=== PATIENT | female | born 1940 | race Caucasian/White ===

== ENCOUNTER → 2016-08-27 | Outpatient (CLI) | payer OTHER ==
--- NOTE | 2016-08-27 16:23 | MA ---
Screening Digital Mammogram with Digital Breast Tomosynthesis Clinical Indications: Routine screening. Technique: Standard cephalocaudal projections are obtained. XCCL view of the right breast was also o btained. Digital breast tomosynthesis was performed in the MLO projection with reconstruction at 1.0 mm slice thickness and composite MLO views reconstructed. This examination is processed by the [employer] aided detection system. Comparison: July 14, 2015; May 02, 2014; and studies dating back to April 07, 2009. Breast density: D; The breasts are extremely dense, which lowers the sensitivity of mammography. Findings: CAD was reviewed. There are no new masses, new clusters of microcalcifications, or significant axillary lymphadenopathy . Impression: Negative mammogram. BI-RADS 1. Recommendation: Routine screening mammogram is recommended in one year. Dense mammographic pattern limits the sensitivity of mammography in this patient. If there is a clini hermilo palpable abnormality, recommend additional imaging with ultrasound if clinically indicated. [facility] will send a result letter to the patient. Negative mammography should not preclude additional workup of a clinically suspicious finding. The patient's information is entered into a reminder system with a target due date for her next mammo gram.
== END ==
LOC: FIMAGING 10:45
DX: Z12.31 Encounter for screening mammogram for malignant neoplasm of breast (principal)
CPT/HCPCS: G0202

== ENCOUNTER → 2016-09-21 | Outpatient (CLI) | payer OTHER ==
[~2016-09-21] MED LIST: GADOBUTROL 10 ML VIAL IVP ONE
--- NOTE | 2016-09-21 11:43 | MR ---
MRI of the Brain and IACs (Without and With Contrast) Clinical Indications: Vertigo.. Technique: T1-weighted images were acquired axially and sagittally from the foramen magnum to the ve rtex. Axial fast T1-weighted, fast T2-weighted, entire brain images were obtained without contrast. Postcontrast axial images through the entire brain with the uneventful intravenous administration of 7 mL Gadavist contrast. Additional thin slice precontrast and postcontrast axial T1-weighted imaging through the internal auditory canals and precontrast 3D FSE T2. Findings: The ventricles, cisterns, and sulci are normal without atrophy, hydrocephalus, midline anna marie ft, herniation, or epidural/subdural hematomas. No intracranial hemorrhage or masses. Cerebellar tons ils are in normal position. Pituitary gland is normal in size. Normal signal flow-void in the superio r sagittal sinus, basilar artery, and bilateral internal carotid arteries indicating patency. Postcon trast images demonstrate no enhancing lesions or abnormal leptomeningeal enhancement. Bilateral inter nal auditory canals, cerebellopontine angle cisterns, VII and VIII cranial nerve complexes demonstrat e no abnormal enhancement, enhancing lesions, or masses. Impression: Normal MR of the brain and IACs without and with contrast enhancement. Results called to Dr. Angel Mckeon at 1139 a.m.
== END ==
LOC: FIMAGING 08:43
PROVIDERS: ATTEND Psychiatry & Neurology Neurology
DX: H81.10 Benign paroxysmal vertigo, unspecified ear (principal); G43.909 Migraine, unspecified, not intractable, without status migrainosus
CPT/HCPCS: 70553; A9585

== ENCOUNTER → 2016-12-16 | Outpatient (CLI) | payer OTHER ==
[~2016-12-16] MED LIST changes: -GADOBUTROL 10 ML VIAL IVP ONE; +IOPAMIDOL (ISOVUE 370) 100 ML BTL IV ONE
== END ==
LOC: FIMAGING 14:17
PROVIDERS: ATTEND Psychiatry & Neurology Neurology
DX: R42 Dizziness and giddiness (principal); R51 Headache
CPT/HCPCS: 70496; Q9967

== ENCOUNTER → 2017-05-01 | Outpatient (CLI) | payer OTHER | LOC: FIMAGING 08:17 | PROVIDERS: ATTEND Internal Medicine | DX: M25.552 Pain in left hip (principal); Z96.642 Presence of left artificial hip joint; M76.02 Gluteal tendinitis, left hip; M70.61 Trochanteric bursitis, right hip ==

== ENCOUNTER → 2017-06-02 | Outpatient (CLI) | payer OTHER | LOC: FIMAGING 09:25 | PROVIDERS: ATTEND Orthopaedic Surgery | DX: Z13.89 Encounter for screening for other disorder (principal); Z96.642 Presence of left artificial hip joint | CPT/HCPCS: 78315; A9503 ==

== ENCOUNTER → 2017-07-14 | Outpatient (CLI) | payer OTHER | LOC: FIMAGING 10:50 | PROVIDERS: ATTEND Psychiatry & Neurology Neurology | DX: R42 Dizziness and giddiness (principal); M50.321 Other cervical disc degeneration at C4-C5 level; M50.322 Other cervical disc degeneration at C5-C6 level | CPT/HCPCS: 70498; Q9967 ==

== ENCOUNTER → 2017-09-14 | Outpatient (CLI) | payer OTHER | LOC: FIMAGING 13:25 | PROVIDERS: ATTEND Internal Medicine | DX: Z12.31 Encounter for screening mammogram for malignant neoplasm of breast (principal) ==

== ENCOUNTER → 2017-11-16 | Outpatient (CLI) | payer OTHER | LOC: FCPNEURO 20:00 | PROVIDERS: ATTEND Student in an Organized Health Care Education/Training Program | DX: G47.33 Obstructive sleep apnea (adult) (pediatric) (principal) ==

== ENCOUNTER → 2017-11-21 | Outpatient (CLI) | payer OTHER | LOC: FIMAGING 18:39 | PROVIDERS: ATTEND Physical Medicine & Rehabilitation | DX: M51.36 Other intervertebral disc degeneration, lumbar region (principal); M12.88 Other specific arthropathies, not elsewhere classified, other specified site ==

== ENCOUNTER → 2017-12-29 | Outpatient (CLI) | payer OTHER | LOC: FIMAGING 11:59 | PROVIDERS: ATTEND Internal Medicine | DX: N63.11 Unspecified lump in the right breast, upper outer quadrant (principal) ==

== ENCOUNTER → 2018-01-25 | Outpatient (CLI) | payer OTHER ==
[~2018-01-25] MED LIST changes: +GADOBUTROL 10 ML VIAL IVP ONE; -IOPAMIDOL (ISOVUE 370) 100 ML BTL IV ONE
== END ==
LOC: FIMAGING 12:46
PROVIDERS: ATTEND Surgery
DX: C50.412 Malignant neoplasm of upper-outer quadrant of left female breast (principal); N60.12 Diffuse cystic mastopathy of left breast
CPT/HCPCS: 0159T; A9585; C8908

== ENCOUNTER → 2018-06-01 | Outpatient (CLI) | payer OTHER | LOC: FIMAGING 19:42 | PROVIDERS: ATTEND Internal Medicine Rheumatology | DX: M50.321 Other cervical disc degeneration at C4-C5 level (principal); M47.22 Other spondylosis with radiculopathy, cervical region ==

== ENCOUNTER → 2018-06-21 | Outpatient (CLI) | payer OTHER | LOC: FIMAGING 19:05 | PROVIDERS: ATTEND Internal Medicine | DX: G31.9 Degenerative disease of nervous system, unspecified (principal); R90.82 White matter disease, unspecified ==

== ENCOUNTER → 2018-08-23 | Outpatient (CLI) | payer OTHER | LOC: FIMAGING 13:13 | PROVIDERS: ATTEND Internal Medicine Hematology & Oncology | DX: R59.0 Localized enlarged lymph nodes (principal); Z85.3 Personal history of malignant neoplasm of breast ==

== ENCOUNTER → 2018-09-19 | Outpatient (CLI) | payer OTHER | LOC: FIMAGING 09:40 | PROVIDERS: ATTEND Internal Medicine | DX: R59.1 Generalized enlarged lymph nodes (principal); Z85.3 Personal history of malignant neoplasm of breast; Z90.11 Acquired absence of right breast and nipple | CPT/HCPCS: A9585; C8908; 82565-PO ==

== ENCOUNTER → 2018-09-25 | Outpatient (CLI) | payer OTHER | LOC: FIMAGING 08:44 | PROVIDERS: ATTEND Internal Medicine | DX: R59.1 Generalized enlarged lymph nodes (principal); Z85.3 Personal history of malignant neoplasm of breast | CPT/HCPCS: A9585; C8908 ==

== ENCOUNTER → 2018-11-14 | Outpatient (CLI) | payer OTHER ==
[~2018-11-14] MED LIST changes: -GADOBUTROL 10 ML VIAL IVP ONE; +LIDOCAINE 1% 300 MG/30 ML SDV ONE; +LORazepam 2 MG/ML INJ ONE
[2018-11-14 09:58] LABS: INR 0.97 (0.83-1.16); PROTIME(PATIENT) 12.5 SEC (12.0-15.0)
== END ==
LOC: FIMAGING 08:31
PROVIDERS: ATTEND Nurse Practitioner Family
PROC: 009U3ZX Drainage of Spinal Canal, Percutaneous Approach, Diagnostic (ICD-10-PCS; principal; 2018-11-14)
DX: G43.909 Migraine, unspecified, not intractable, without status migrainosus (principal)
CPT/HCPCS: 62270; J2060

== ENCOUNTER → 2019-01-19 | Outpatient (CLI) | payer OTHER | LOC: FIMAGING 11:55 ==